=== PATIENT | male | born 1985 | race Hispanic/Latino ===

== ENCOUNTER 2020-07-29 22:10 | Emergency (ER) | payer OTHER, SELFPAY ==
[2020-07-29] MEDS ORDERED: Boostrix 0.5 ML (Tdap) VIAL ONE (23:09)
[2020-07-29] MEDS ORDERED: HYDROcodone/Acetaminophen 10/325 mg Tablet ONE (23:09)
[2020-07-30] MEDS ORDERED: Lidocaine 1% (PF) 30 ML VIAL ONE (00:06)
== END 2020-07-30 01:31 | disposition home or self-care (01) ==
LOC: ERS 22:10
DX: S09.90XA Unspecified injury of head, initial encounter (principal); S01.01XA Laceration without foreign body of scalp, initial encounter; V43.92XA Unspecified car occupant injured in collision with other type car in traffic accident, initial encounter
CPT/HCPCS: 12005; 70450; 72125; 90471; 90715; J2001

== ENCOUNTER 2020-08-05 13:48 | Emergency (ER) | payer SELFPAY | END 2020-08-05 14:44 | disposition home or self-care (01) | LOC: ERS 13:48 | DX: S01.01XD Laceration without foreign body of scalp, subsequent encounter (principal); V89.2XXD Person injured in unspecified motor-vehicle accident, traffic, subsequent encounter ==

== ENCOUNTER 2021-08-19 21:28 | Emergency (ER) | payer SELFPAY ==
[2021-08-19] MEDS ORDERED: Lidocaine 1% PF 5 ML VIAL ONE ×2 (21:58→22:09)
== END 2021-08-19 22:49 | disposition home or self-care (01) ==
LOC: ERS 21:28
DX: L02.412 Cutaneous abscess of left axilla (principal); L73.2 Hidradenitis suppurativa
CPT/HCPCS: 10060